=== PATIENT | male | born 1970 | race African-American/Black ===

== ENCOUNTER 2023-10-13 18:11 | Inpatient (IN) | payer OTHER ==
[2023-10-13 21:43] VITALS: BMI 22.0
[2023-10-14] MEDS ORDERED: BENZONATATE 200 MG CAPSULE PO PRN (01:16)
[2023-10-14] MEDS ORDERED: guaiFENesin 600 MG TABLET.ER (FP) PO PRN (01:16)
[2023-10-14] MEDS ORDERED: NALOXONE HCL (KLOXXADO) 8 MG SPRAY NS PRN (01:16)
[2023-10-14] MEDS ORDERED: MAGNESIUM HYDROX 2400MG/30ML ORAL SUSPENSION 30 ML CUP PO PRN (01:16)
[2023-10-14] MEDS ORDERED: NALOXONE HCL 0.4 MG/ML VIAL IM PRN (01:16)
[2023-10-14] MEDS ORDERED: LOPERAMIDE HCL 2 MG CAPSULE PO PRN (01:16)
[2023-10-14] MEDS ORDERED: IBUPROFEN 600 MG TABLET (FP) PO PRN (01:16)
[2023-10-14] MEDS ORDERED: POLYETHYLENE GLYCOL (HEALTHYLAX) 3350 17 GM PACKET PO PRN (01:16)
[2023-10-14] MEDS ORDERED: IBUPROFEN 400 MG TABLET (FP) PO PRN (01:16)
[2023-10-14] MEDS ORDERED: ACETAMINOPHEN 325 MG TABLET (FP) PO PRN (01:16)
[2023-10-14] MEDS ORDERED: BENZOCAINE/MENTHOL (CHLORASEPTIC ) LOZENGE MM PRN (01:16)
[2023-10-14] MEDS: PRENATAL VITAMINS W/ FOLIC ACID TABLET (FP) PO SCH (10:17)
[2023-10-14] MEDS: NICOTINE 14 MG/24 HOURS TOPICAL PATCH TD SCH (10:17)
[2023-10-14] MEDS: NICOTINE POLACRILEX 2 MG GUM BUC PRN (10:18)
[2023-10-14] MEDS: TUBERCULIN PPD 5 TU/0.1ML SYRINGE (IN PATIENT USE ONLY) ID ONE (10:30)
[2023-10-14 13:56] LABS: EPI CELLS >36 /uL (0-25.1); HYALINE CASTS 21 /uL (0-3.1); URINE APPEARANCE CLEAR; URINE BACTERIA 23 /uL (0-1359); URINE BILIRUBIN NEGATIVE (NEGATIVE); URINE COLOR YELLOW; URINE GLUCOSE (UA) NEGATIVE (NEGATIVE); URINE KETONE NEGATIVE (NEGATIVE); URINE LEUK ESTERASE 2+ (NEGATIVE); URINE NITRITE NEGATIVE (NEGATIVE); URINE PROTEIN NEGATIVE (NEGATIVE); URINE RBC 11 /uL (0-23.9); URINE WBC 241 /uL (0-25.8)
[2023-10-14] MEDS: MELATONIN 5 MG TABLETS PO SCH (21:54)
[2023-10-14] MEDS: THIAMINE HCL 100 MG TABLET (FP) PO SCH (21:55)
[2023-10-15 11:29] LABS: HEMOGLOBIN 12.6 GM/dL (11.7-16.9); MCH 27.9 pg (25.7-33.7); MCHC 32.4 g/dl (32.0-35.9); MEAN CELL VOLUME 86.3 fl (80-96); MEAN PLT VOLUME 10.1 fl (7.5-11.1); PLATELET COUNT 220 10^3/uL (134-434); RBC 4.52 M/mm3 (4.00-5.60); RDW 18.6 % (11.9-15.9); WHITE BLOOD COUNT 6.5 K/mm3 (4.0-10.0)
[2023-10-15 11:44] LABS: POTASSIUM 5.2 mmol/L (3.5-5.1)
[2023-10-15 11:46] LABS: ALBUMIN 3.3 g/dl (3.4-5.0); BLOOD UREA NITROGEN 9.9 mg/dL (7-18); CALCIUM 9.3 mg/dL (8.5-10.1)
[2023-10-15 11:51] LABS: BILIRUBIN,TOTAL 0.6 mg/dL (0.2-1); TOT PROT 6.8 g/dl (6.4-8.2)
[2023-10-16] MEDS: hydrOXYzine PAMOATE 25 MG CAPSULE (FP) PO PRN (06:47)
[2023-10-16] MEDS: ONDANSETRON *ODT* 4 MG TABLET SL ONE (07:29)
[2023-10-16] MEDS: MAG HYDROX/AL HYDROX/SIMETH 30 ML UNIT-DOSE CUP PO PRN (10:21)
[2023-10-16] MEDS: LOSARTAN 50MG/HCTZ 12.5MG 1 TAB PO SCH (10:59)
[2023-10-16] MEDS: hydrOXYzine PAMOATE 25 MG CAPSULE (FP) PO ONE (11:16)
[2023-10-16] MEDS: cloNIDine HCL 0.1 MG TABLET PO ONE ×2 (15:42→22:21)
[2023-10-16] MEDS: amLODIPine BESYLATE 5 MG TABLET (FP) PO ONE (22:21)
[2023-10-17] MEDS: PANTOPRAZOLE 20 MG TABLET PO SCH (10:32)
[2023-10-17 11:36] LABS: EPI CELLS 7 /uL (0-25.1); HYALINE CASTS 1 /uL (0-3.1); URINE APPEARANCE CLEAR; URINE BACTERIA 2 /uL (0-1359); URINE BILIRUBIN NEGATIVE (NEGATIVE); URINE COLOR YELLOW; URINE GLUCOSE (UA) NEGATIVE (NEGATIVE); URINE KETONE NEGATIVE (NEGATIVE); URINE LEUK ESTERASE TRACE (NEGATIVE); URINE NITRITE NEGATIVE (NEGATIVE); URINE PROTEIN NEGATIVE (NEGATIVE); URINE RBC 1 /uL (0-23.9); URINE UROBILINOGEN 0.2 mg/dL (0.2-1.0); URINE WBC 32 /uL (0-25.8)
[2023-10-18] MEDS: cloNIDine HCL 0.1 MG TABLET PO ONE (01:45)
[2023-10-18] MEDS: ONDANSETRON *ODT* 4 MG TABLET SL ONE (01:45)
[2023-10-19] MEDS: cloNIDine HCL 0.1 MG TABLET PO ONE (06:56)
[2023-10-19] MEDS: LOSARTAN 50MG/HCTZ 12.5MG 1 TAB PO SCH (10:11)
[2023-10-19] MEDS: MELATONIN 5 MG TABLETS PO SCH (21:37)
[2023-10-20] MEDS: LOSARTAN 50MG/HCTZ 12.5MG 1 TAB PO SCH (06:18)
[2023-10-20] MEDS: cloNIDine HCL 0.1 MG TABLET PO ONE (08:23)
[2023-10-20] MEDS: amLODIPine BESYLATE 5 MG TABLET (FP) PO SCH (13:24)
[2023-10-20] MEDS ORDERED: amLODIPine BESYLATE 2.5 MG TABLET (FP) PO SCH (14:00)
[2023-10-21] MEDS: SUVOREXANT 10 MG TABLET PO PRN (22:04)
[2023-10-22] MEDS ORDERED: amLODIPine BESYLATE 5 MG TABLET (FP) PO SCH (08:49)
[2023-10-22] MEDS: amLODIPine BESYLATE 5 MG TABLET (FP) PO SCH (10:07)
[2023-10-23] MEDS: BACITRACIN/POLYMYXIN B SULFATE 15 GM TUBE TP SCH (14:54)
[2023-10-23 18:45] VITALS: BP 135/76; PULSE 78; RESP 18; TEMP 96.9
== END 2023-10-23 19:40 | disposition home or self-care (01) | DRG 772 ==
LOC: YASAS 18:11 → Y5N 10-14 02:57 → Y3NR 10-23 18:36 → Y3W 10-23 18:41
PROVIDERS: ADMIT Allergy & Immunology; ATTEND Psychiatry & Neurology Pain Medicine
PROC: HZ42ZZZ Group Counseling for Substance Abuse Treatment, Cognitive-Behavioral (ICD-10-PCS; principal; 2023-10-14)
DX: F14.20 Cocaine dependence, uncomplicated (principal); F10.20 Alcohol dependence, uncomplicated; F12.20 Cannabis dependence, uncomplicated; F17.210 Nicotine dependence, cigarettes, uncomplicated; F19.282 Other psychoactive substance dependence with psychoactive substance-induced sleep disorder; G47.00 Insomnia, unspecified; K21.9 Gastro-esophageal reflux disease without esophagitis; Z62.810 Personal history of physical and sexual abuse in childhood; Z63.8 Other specified problems related to primary support group; Z86.19 Personal history of other infectious and parasitic diseases; Z56.0 Unemployment, unspecified; Z59.00 Homelessness unspecified
CPT/HCPCS: 0241U-QW; 36415; 80053; 80307; 81003; 84132; 85027; 86593; 86780; 87070; 87205; 87491; 87591; 87635; 87661; 93005; 93010; Q0162